=== PATIENT | female | born 1955 | race Caucasian/White ===

== ENCOUNTER 2022-12-06 19:23 | Emergency (ER) | payer MEDICARE, OTHER, SELFPAY ==
[2022-12-06 19:29] VITALS: BP 152/99; PULSE 89; RESP 16; TEMP 36.7; O2SAT 96; BMI 25.7
--- NOTE | 2022-12-06 20:17 | ED.HEATRA1 ---
HPI - Head Injury General Chief complaint: Head Injury Stated complaint: FALL HEAD INJURY Time Seen by Provider: 12/06/22 20:17 Source: patient Mode of arrival: walk-in History of Present Illness HPI Narrative: Patient presents to emergency department complaining of a head injury. Patient states she tripped on cement and fell onto her bilateral knees and hit the frontal area of her head with a lot of epistaxis. She did not have loss of consciousness. She is here complaining Headache, no sprain, and bilateral knee pain. She was able to ambulate. Her immunizations are up-to-date. She denies any visual disturbance, speech. She denies any paresthesias, or weakness. Denies any nausea, vomiting, diarrhea, constipation, or abdominal pain. She denies any pain to her upper extremities. She denies any chest pain, shortness of breath. Related Data Home Medications Medication Instructions Recorded Confirmed anastrozole 1 mg tablet 1 mg PO DAILY 12/06/22 12/06/22 cyclosporine 0.05 % eye drops in a 1 drp ophthalmic (eye) Q12H 12/06/22 12/06/22 dropperette (Restasis) fish, borage, flaxseed oils-omega cap PO DAILY 12/06/22 3,6,9 comb no.1 1,200 mg capsule (Ettrick 3-6-9) levothyroxine 100 mcg tablet 100 mcg PO DAILY 12/06/22 12/06/22 (Euthyrox) multivitamin 1 tab PO DAILY 12/06/22 12/06/22 venlafaxine 37.5 mg 37.5 mg PO DAILY 12/06/22 12/06/22 capsule,extended release 24 hr Allergies Allergy/AdvReac Type Severity Reaction Status Date / Time acetaminophen [From [place]] Allergy Severe Verified 12/06/22 19:35 bupropion Allergy Severe Verified 12/06/22 19:35 hydrocodone [From [place]] Allergy Severe Verified 12/06/22 19:35 latex Allergy Severe Verified 12/06/22 19:35 propoxyphene Allergy Severe Verified 12/06/22 19:35 [From Darvocet-N 100] IV contrast Allergy Severe Uncoded 12/06/22 19:35 Review of Systems ROS Status of ROS 10 or more systems reviewed and unremarkable except as noted in history and below [facility] Medical History (Updated 12/06/22 @ 23:22 by Nancie Mccann MD) Exam Narrative Exam Narrative: Nurses notes and vital signs reviewed and patient is not hypoxic. General: Nontoxic,Well-appearing, and in no apparent distress. Skin: Warm, dry, no pallor noted. No Rash Head: Normocephalic, Ecchymosis and abrasion to the mid frontal region, nasal bridge, there is ecchymosis with mild periorbital ecchymosis. Extraocular muscles are intact. There is no tenderness or step-offs noted to the periorbital region. No septal hematoma. Neck: Supple, non-tender. Eye: Pupils are equal, round and EOMI. No scleral icterus. Ears, Nose, Mouth, and Throat: TM clear,No hemotympanum, no posterior oropharynx erythema or nasal mucosal hypertrophy, uvula is mid-line Oral mucosa is moist Cardiovascular: Regular Rate and Rhythm without murmur, gallop or rub. Respiratory: No accessory muscle use or respiratory distress. Lungs are clear to auscultation, no wheezing, rales or rhonchi Chest Wall: no tenderness Back: No midline thoracic or lumbar vertebral tenderness. No CVA tenderness Musculoskeletal: bilateral anterior knee abrasions, no ecchymosis noted. Range of motion limited by pain. DP +2, tp +2, cap refill brsik. normal ROM, no calf or popliteal tenderness, no lower extremity edema/swelling GI: Abdomen is soft, non-distended. Normal bowel sounds. No masses appreciated. No tenderness to palpation. No rebound, guarding, or rigidity noted. Neurological: A&O x4. No cranial nerve dysfunction observed. No truncal ataxia. Moves all extremities. Sensation intact. Psychiatric: Cooperative and interactive. Normal mood and affect. Constitutional Vital Signs, click to edit/add: Last Vital Signs Temp 98 F 12/06/22 23:21 Pulse 76 12/06/22 23:21 Resp 16 12/06/22 23:21 BP 131/84 H 12/06/22 23:21 Pulse Ox 96 12/06/22 23:21 O2 Del Method Room Air 12/06/22 23:21 Course Vital Signs Vital signs: Vital Signs Temperature 98.0 F 12/06/22 19:29 Pulse Rate 89 12/06/22 19:29 Respiratory Rate 16 12/06/22 19:29 Blood Pressure 152/99 H 12/06/22 19:29 Pulse Oximetry 96 12/06/22 19:29 Oxygen Delivery Method Room Air 12/06/22 19:29 Temperature 98 F 12/06/22 23:21 Pulse Rate 76 12/06/22 23:21 Respiratory Rate 16 12/06/22 23:21 Blood Pressure 131/84 H 12/06/22 23:21 Pulse Oximetry 96 12/06/22 23:21 Oxygen Delivery Method Room Air 12/06/22 23:21 MDM - Head Injury MDM Narrative Medical decision making narrative: CT scan of the brain knees are unremarkable. CT of the facial bones and cervical spine were not resulted. [facility] PAC system was down and alleges had to be resent when they came up. Patient and spouse did not want to wait for the results. He stated we could just: The results in the morning. Patient understands that she could suffer permanent disability, and . She will follow up with her ENT and OMF physician. Patient states she had previous orbital surgery.The patient will sign out against medical advice. We will provide the patient with a disc with her imaging. At this time the patient is without objective evidence of an acute process requiring hospitalization or inpatient management. The patient has remained hemodynamically stable. No additional indication for emergent studies at this time. I answered all questions. Discussed discharge instructions including standard anticipatory guidance and what should prompt a return to the emergency department, including if they get worse are not getting better or develops any new or concerning symptoms. I've given them specific time frame in which to follow-up, and who to follow-up with. The patient demonstrates understanding. Patient is nontoxic and stable for discharge with outpatient follow-up. This note was created with the assistance of a speech recognition program. Although the intention is to generate documents that actually reflects the content of the visit, no guarantees can be provided that every mistake has been identified and corrected by editing. Differential Diagnosis Differential diagnosis: Likely epidural hematoma, closed head injury and subdural hematoma Discharge Plan Discharge Chief Complaint: Head Injury Clinical Impression: Facial bone fracture, Closed head injury, Abrasion of knee, bilateral Patient Disposition: Left Against Medical Advice Time of Disposition Decision: 23:21 Condition: Good Mode of Transportation: Private Vehicle Prescriptions / Home Meds: No Action anastrozole 1 mg tablet 1 mg PO DAILY levothyroxine [Euthyrox] 100 mcg tablet 100 mcg PO DAILY multivitamin Tablet 1 tab PO DAILY Ettrick 3-6-9 1,200 mg capsule PO DAILY venlafaxine 37.5 mg capsule,extended release 24hr 37.5 mg PO DAILY cyclosporine [Restasis] 0.05 % dropperette 1 drp OPHTHALMIC (EYE) Q12H Instructions: Facial Fracture (ED), Head Injury (ED), Abrasion (ED) Stand Alone Forms: Portal Instructions Referrals: Physician,Non-Staff, MD [Primary Care Provider] - 1 week Discharge Date/Time: 12/06/22 23:25
--- NOTE | 2022-12-06 20:24 | CT_ITS ---
The [address] [address] Patient Name: EVENS GARCIA MRN: [id number] date: 1955 Sex: F Assigned Patient Location: ER Current Patient Location: Accession/Order Number: [id number] Exam Date: 12/06/2022 20:50 Report Date: 12/06/2022 22:26 At the request of: KIM GARCIA Procedure: CT head/brain wo con EXAMINATION: CT head/brain wo con CLINICAL HISTORY: pain, fall TECHNIQUE: Serial axial unenhanced images were obtained from the vertex to the foramen magnum. Spiral, high resolution axial unenhanced images were obtained from the skull base to the cervicothoracic junction with sagittal and coronal planar reconstructions. Spiral high resolution axial unenhanced images were also obtained through the facial bones with sagittal and coronal planar reconstructions. All CT scans at this facility use dose modulation, iterative reconstruction, and/or weight based dosing when appropriate to reduce radiation dose to as low as reasonably achievable. COMPARISON: None. RESULT: BRAIN: Acute change: No evidence of an acute contusion or other acute parenchymal process. Hemorrhage: No evidence of acute intracranial hemorrhage. Mass lesion / Mass effect: There is no evidence of an intracranial mass or extraaxial fluid collection. No significant mass effect. Chronic change: None apparent. Parenchyma: There is no significant volume loss. The brain parenchyma is otherwise within normal limits for age. Ventricles: The ventricles are within normal limits of size and configuration for age. Soft Tissues: Mild frontal scalp soft tissue swelling. Facial bones: No evidence of an acute fracture in the visualized facial bones. Orbits: No evidence of an acute fracture. The globes are intact. The soft tissue planes of the orbits are maintained. Paranasal Sinuses: The paranasal sinuses are clear. Mastoid air cells: Clear. Foreign Bodies: No evidence of radio-opaque foreign bodies. Other: No evidence of a remote fracture. No lytic or blastic process in the facial bones. CT/CT head/brain wo con IMPRESSION: No evidence of acute intracranial process. Mild frontal scalp soft tissue swelling. Electronically authenticated by: RU KAUFFMAN Date: 12/06/2022 22:26
--- NOTE | 2022-12-06 20:24 | XR_ITS ---
The [address] [address] Patient Name: EVENS GARCIA MRN: [id number] date: 1955 Sex: F Assigned Patient Location: ER Current Patient Location: ER Accession/Order Number: [id number] Exam Date: 12/06/2022 21:15 Report Date: 12/06/2022 22:26 At the request of: KIM GARCIA Procedure: XR knee ALAN 3V EXAM: XR knee ALAN 3V HISTORY: pain, fall COMPARISON: None. TECHNIQUE: 3 views each name FINDINGS: Right: Overall bony architecture is normal. There is mild medial joint space narrowing with early medial osteophytosis. The patellofemoral joint space is mildly narrowed, with early dorsal osteophytosis. Soft tissues are normal, without evidence of a significant joint effusion. Left: Overall bony architecture is normal. There is mild medial joint space narrowing with early medial osteophytosis. The patellofemoral joint space is mildly narrowed. Soft tissues are normal, without evidence of a significant joint effusion. XR/XR knee ALAN 3V IMPRESSION: Early degenerative arthritis bilaterally. No evidence for acute fracture or dislocation. Electronically authenticated by: Laurie TERRELL Date: 12/06/2022 22:26
--- NOTE | 2022-12-06 22:01 | PC.NURSE ---
Swelling and ecchymosis to bridge of nose. Ice pack provided.
[2022-12-06 23:21] VITALS: BP 131/84; PULSE 76; RESP 16; TEMP 36.6; O2SAT 96
--- NOTE | 2022-12-07 01:31 | CT_ITS ---
The [address] [address] Patient Name: EVENS GARCIA MRN: [id number] date: 1955 Sex: F Assigned Patient Location: ER Current Patient Location: ER Accession/Order Number: [id number] Exam Date: 12/07/2022 01:31 Report Date: 12/07/2022 02:05 At the request of: KIM GARCIA Procedure: CT cervical spine wo con CT facial bones wo con, CT cervical spine wo con INDICATION: 67 years old; Female . Symptom/Location/Duration: pain, fall TECHNIQUE: CT of the facial bones was performed. IV contrast: None. Axial, coronal, sagittal reformats were created and reviewed. Dose reduction techniques were achieved by using automated exposure control and/or adjustment of mA and/or kV according to patient size and/or use of iterative reconstruction technique. COMPARISON: None. FINDINGS: FRONTAL BONES: SUPRAORBITAL SOFT TISSUES: Supraorbital soft tissue swelling present centrally projecting to the right. No subjacent bony abnormality is seen. No displaced fracture is noted. ORBITS: Globes: Normal without proptosis or evidence of disruption or intraocular foreign body. Retrobulbar fat: normal without mass or hematoma. Extraocular Muscles: There is thickening of the medial rectus muscles bilaterally associated with dehiscence of the medial avila of both orbits. Optic Nerves: Normal without mass-effect or evidence of disruption. Preseptal Soft Tissues: Mild preseptal/periorbital soft tissue swelling. Avila: There is dehiscence of the medial avila of both orbits. This is worse on the left than the right. No adjacent fluid levels or opacification is seen in the ethmoid sinuses. There is herniation of extraconal fat into the defect on the left. No muscle entrapment is noted although the left medial rectus muscle projects into the smoothly marginated defect. There is bony dehiscence involving the floors of both orbits. This also appears smoothly marginated. No entrapment of the inferior rectus muscles is seen. There is chronic mucoperiosteal thickening in the right maxillary sinus. No fluid levels are seen in either maxillary sinus. These fractures all appear indeterminate in age. The appearance of be consistent with indeterminate age medial wall fractures. MAXILLA AND MANDIBLE: Maxillary and buccal soft tissues: Normal without swelling, laceration or foreign body. Maxillary bones: The patient is edentulous in the maxilla. Bony demineralization is seen. No fracture is appreciated. Mandible: Multiple missing teeth. Bony demineralization is seen. No fracture or bone displacement is seen. Degenerative changes in the TMJ, worse on the left than the right. Nasal bones and septum: There is soft tissue swelling overlying the nasal bones. Bilateral nasal fracture is appreciated. These are sharply marginated and have an acute appearance. There is mild medial displacement on the left. The nasal processes the maxilla are intact bilaterally. Nasal septal deviation to the left with spur formation. There is soft tissue swelling of the anterior nasal septum. There is additional perforation of the septum. This would be consistent with intranasal medication or drug use, prior surgery, or granulomatous disease. PARANASAL SINUSES: Frontal: Clear. Ethmoid: Deformity associated with medial wall dehiscence. No fluid levels are seen. Maxillary: Maxillary thickening with secretions are present on the right. This has a chronic appearance. The left maxillary sinus demonstrates minimal thickening. No fluid level. Sphenoid: Clear. Zygomatic arch: Intact bilaterally. Pterygoid plates: Intact bilaterally. TECHNIQUE: CT imaging of the cervical spine was performed. IV contrast: None. Dose reduction techniques were achieved by using automated exposure control and/or adjustment of mA and/or kV according to patient size and/or use of iterative reconstruction technique. COMPARISON: None available. FINDINGS: POSTOPERATIVE CHANGES: None. ALIGNMENT: Normal cervical curve. No bony displacement. COMPRESSION FRACTURES: No fracture or vertebral body collapse is seen. No asymmetric widening of the facets. PREVERTEBRAL SOFT TISSUES: Normal. CRANIOCERVICAL JUNCTION: There is a normal relationship of the occipital condyles, lateral masses of C1, and articular surfaces of C2. The base of the dens and body of C2 are intact. There is narrowing of the predental space with spurring arising from the anterior arch of C1 and the dens. POSTERIOR FOSSA: The cerebellar tonsils are above the foramen magnum. Disc levels: C2-C3: No disc herniation. No spinal canal or foraminal narrowing. C3-C4: Shallow central protrusion type disc herniation. Central canal patent. Neural foramina patent. C4-C5: No disc herniation. No spinal canal or foraminal narrowing. C5-C6: No disc herniation. No spinal canal or foraminal narrowing. C6-C7: Disc bulging and endplate osteophyte formation. Central canal and neural foramina patent. C7-T1: No disc herniation. No spinal canal or foraminal narrowing. UPPER THORACIC SPINE: Not included in this examination. OTHER: There is asymmetry in the appearance of the vallecula which is narrowed on the right. Recommend direct visualization. CT/CT cervical spine wo con IMPRESSION: 1. Soft tissue swelling with fractures associated nasal bones bilaterally with slight depression on the left. The fractures are sharply marginated and have an acute appearance. Soft tissue swelling is also noted. 2. Anterior nasal septal perforation which is nonspecific. 3. There is smoothly marginated dehiscence of the medial avila of both orbits, worse on the left than the right and the orbital floors bilaterally. There is no adjacent fluid levels in the ethmoid or maxillary sinuses. The appearance is consistent with indeterminate age fractures. There is thickening of the medial rectus muscles bilaterally. No entrapment is seen. Correlate with direct examination. 4. Supraorbital soft tissue swelling on the right. No fracture the anterior wall the frontal sinus is appreciated. 5. No cervical fracture is seen. Cervical spondylosis is noted. 6. Asymmetric narrowing of the vallecula on the right. This may be secondary to secretions. Consider direct visualization. Electronically authenticated by: WILIAN MARCUS Date: 12/07/2022 02:05
== END 2022-12-06 23:25 | disposition left against medical advice (07) ==
PROVIDERS: Emergency Provider Emergency Medicine; Family Provider Internal Medicine
DX: S02.2XXA Fracture of nasal bones, initial encounter for closed fracture (principal); W01.0XXA Fall on same level from slipping, tripping and stumbling without subsequent striking against object, initial encounter; S00.83XA Contusion of other part of head, initial encounter; S09.8XXA Other specified injuries of head, initial encounter; S80.212A Abrasion, left knee, initial encounter; S80.211A Abrasion, right knee, initial encounter
CPT/HCPCS: 70450; 70486; 72125; 73562; 99284

== ENCOUNTER 2024-04-02 11:38 | Emergency (ER) | payer MEDICARE, OTHER, SELFPAY ==
[2024-04-02] VITALS (25 sets, daily range): BP systolic 117–161; BP diastolic 71–86; PULSE 79–101; TEMP 36.4; O2SAT 95–100; BMI 24.5
--- NOTE | 2024-04-02 11:58 | XR_ITS ---
The [address] [address] Patient Name: EVENS GARCIA MRN: [id number] date: 1955 Sex: F Assigned Patient Location: ER Current Patient Location: ER Accession/Order Number: [id number] Exam Date: 04/02/2024 12:15 Report Date: 04/02/2024 12:44 At the request of: LAURYN CARPENTER Procedure: XR chest 2V EXAM: XR chest 2V HISTORY: sob COMPARISON: None. TECHNIQUE: Upright PA and lateral chest x-ray FINDINGS: The heart is not enlarged and the vasculature is not distended. No acute infiltrate, effusion or pneumothorax is identified. Scoliosis the spine is noted. XR/XR chest 2V IMPRESSION: No acute infiltrate or evidence of cardiac decompensation. Electronically authenticated by: DEVAN STUBBS Date: 04/02/2024 12:44
--- NOTE | 2024-04-02 12:00 | ED_ITS ---
HPI HPI - General Adult General Chief complaint: Shortness of Breath/Dyspnea Stated complaint: SOB Time Seen by Provider: 04/02/24 11:53 Source: patient Mode of arrival: walk-in Limitations: no limitations History of Present Illness HPI narrative: Presented to the emergency department for evaluation of shortness of breath. Patient states for the last week she has been having cough, nasal congestion, coughing fits that leave her breathless. States it has been going on for the last week. Sputum production of green sputum intermittently. She called her doctor to try make an appointment. She went to urgent care yesterday, they told her she had walking pneumonia but it could be going into regular pneumonia so she needed to get an x-ray. Called her PCP to try and again, they told her to just come to the emergency department. Patient states when she has coughing fits she feels like she cannot catch her breath. Has had no leg pain, calf pain or swelling or tenderness, no recent travel, cancer, surgery, immobility. Has a history of breast cancer in the past, but is fully taken care of and has no active cancer no other complaints at this time Related Data Home Medications ?Medication ?Instructions ?Recorded ?Confirmed anastrozole 1 mg tablet 1 mg PO DAILY 12/06/22 12/06/22 cyclosporine 0.05 % eye drops in a 1 drp ophthalmic (eye) Q12H 12/06/22 12/06/22 dropperette (Restasis) fish, borage, flaxseed oils-omega cap PO DAILY 12/06/22 3,6,9 comb no.1 1,200 mg capsule ([place] 3-6-9) levothyroxine 100 mcg tablet 100 mcg PO DAILY 12/06/22 12/06/22 (Euthyrox) multivitamin 1 tab PO DAILY 12/06/22 12/06/22 venlafaxine 37.5 mg 37.5 mg PO DAILY 12/06/22 12/06/22 capsule,extended release 24 hr Previous Rx's ?Medication ?Instructions ?Recorded albuterol sulfate 2.5 mg/3 mL 2.5 mg (3 mL) inhalation Q4H PRN 04/02/24 (0.083 %) solution for nebulization shortness of breath or wheezing #75 mL Allergies Allergy/AdvReac Type Severity Reaction Status Date / Time acetaminophen (From i-nexus) Allergy Severe Verified 12/06/22 19:35 bupropion Allergy Severe Verified 12/06/22 19:35 hydrocodone (From [place]) Allergy Severe Verified 12/06/22 19:35 latex Allergy Severe Verified 12/06/22 19:35 propoxyphene (From Allergy Severe Verified 12/06/22 19:35 Darvocet-N 100) IV contrast Allergy Severe Uncoded 12/06/22 19:35 Opioid HPI Opioid Management Most Recent Opioid Data: No Data to Display Review of Systems ROS Narrative Negative unless otherwise stated in the HPI PFSH PFS Medical History (Updated 04/02/24 @ 15:40 by Kimani Moya MD) Malignant neoplasm of breast (female) ?C50.919 - Malignant neoplasm of unspecified site of unspecified female breast (ICD-10) Adrenal adenoma ?D35.00 - Benign neoplasm of unspecified adrenal gland (ICD-10) 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 - Thyrotoxicosis, unspecified without thyrotoxic crisis or storm (ICD-10) Graves' eye disease ?E05.00 - Thyrotoxicosis with diffuse goiter without thyrotoxic crisis or storm (ICD-10) Hypothyroidism ?E03.9 - Hypothyroidism, unspecified (ICD-10) Social History Little interest or pleasure in doing things: not at all Feeling down, depressed, or hopeless: not at all Exam Narrative Exam Narrative: General: NAD, AAOx3, no distress HEENT: NCAT, mmm Neck: Supple, no LAD, negative Kernig/Brudzinski, non meningeal, no bruit, no supraclavicular retractions Respiratory: respiratory effort normal, speaks in full sentences, no tripod position, no accessory muscle use. Lungs clear to auscultation without rhonchi, wheezes, rales, no retractions Cardiac: Regular rate and rhythm, no edema, regular s1/s2, no m/g/r Abdomen: Soft, ND/NT. No evidence of fluid wave. No pulsatile masses on exam, rebound tenderness, Perez sign or pain over Mcburney's point. Ext: No calf swelling, no leg pain Constitutional Vital Signs, click to edit/add: Last Vital Signs Temp 97.6 F 04/02/24 11:42 Pulse 87 04/02/24 15:01 Resp 18 04/02/24 14:50 BP 131/82 04/02/24 14:45 Pulse Ox 97 04/02/24 15:01 O2 Del Method Room Air 04/02/24 15:01 Course Vital Signs Vital signs: Vital Signs Temperature 97.6 F 04/02/24 11:42 Pulse Rate 91 H 04/02/24 11:42 Respiratory Rate 22 H 04/02/24 11:42 Blood Pressure 161/84 H 04/02/24 11:42 Pulse Oximetry 98 04/02/24 11:42 Oxygen Delivery Method Room Air 04/02/24 11:42 Temperature 97.6 F 04/02/24 11:42 Pulse Rate 87 04/02/24 15:01 Respiratory Rate 18 04/02/24 14:50 Blood Pressure 131/82 04/02/24 14:45 Pulse Oximetry 97 04/02/24 15:01 Oxygen Delivery Method Room Air 04/02/24 15:01 Medical Decision Making MDM Narrative Medical decision making narrative: MDM Patient with history as above presented with shortness of breath. History obtained from patient. Patient was nontoxic, stable. Ambulatory. Exam as above. EKG reviewed. Labs reviewed. Independently reviewed imaging. Reviewed external records. Differential diagnosis considered. Overall presentation is consistent with bronchospasm 1538 patient was reevaluated, states after she got the breathing treatment, all her symptoms resolved, she feels well states that she is never had a diagnosis of emphysema, COPD. CTA labs and incidental findings were noted and discussed. Patient does have a nebulizer machine, states she quit smoking 14 years ago. Patient may have some component of emphysema/COPD. She is currently on steroids is given yesterday from the urgent care, these, pulmonology referral. States that she is asymptomatic right now. Advanced guidance has been given. Vss, pex is benign at this time. Pt to fu with pcp 1-2 days for reeval, rter should sx worsen, persist or become worrysome in any way. All incidental laboratory studies, EKG, radiologic findings have been noted and discussed with patient. Patient was reevaluated with a benign exam at this time. Pt expressed understanding and agreement with plan of care at this time. Will fu as planned. Pt stable for discharge. Lab Data Labs: Lab Results 04/02/24 04/02/24 Range/Units 11:45 11:55 WBC 12.2 H (4.0-11.0) 10^3/uL RBC 4.94 (4.20-5.40) 10^6/uL Hgb 14.8 (12.0-16.0) g/dL Hct 43.3 (36.0-48.0) % MCV 87.7 (81.0-99.0) fL MCH 30.0 (26.7-34.0) pg MCHC 34.2 (29.9-35.2) g/dL RDW 12.3 (11.0-15.0) % Plt Count 419 (150-450) 10^3/uL MPV 10.2 (9.5-13.5) fL Neut % (Auto) 83.3 H (43.0-75.0) % Lymph % (Auto) 6.6 L (20.5-60.0) % [place] % (Auto) 8.9 (1.7-12.0) % Eos % (Auto) 0.3 L (0.9-7.0) % Baso % (Auto) 0.5 (0.2-2.0) % Neut # (Auto) 10.2 H (1.4-6.5) 10^3/uL Lymph # (Auto) 0.8 L (1.2-3.8) 10^3/uL [place] # (Auto) 1.1 H (0.3-0.8) 10^3/uL Eos # (Auto) 0.0 (0.0-0.7) 10^3/uL Baso # (Auto) 0.1 (0.0-0.1) 10^3/uL Abs Immat Gran (auto) 0.05 H (0.00-0.03) 10^3/uL Imm/Tot Granulo (auto) 0.4 (0.0-0.5) % PT 11.5 (9.0-11.6) sec INR 1.09 APTT 25.1 (22.3-36.2) sec D-Dimer 1.46 H* (<=0.59) mg/L FEU Sodium 143 (136-145) mmol/L Potassium 4.0 (3.5-5.1) mmol/L Chloride 108 H (98-107) mmol/L Carbon Dioxide 18.8 L (21.0-32.0) mmol/L Anion Gap 20.2 BUN 23.0 H (7.0-18.0) mg/dL Creatinine 1.32 H (0.55-1.02) mg/dL Est GFR ( Amer) 48 L (>=60 mL/min/1.73m^2) Est GFR (Non-Af Amer) 40 L (>=60 mL/min/1.73m^2) BUN/Creatinine Ratio 17.4 Glucose 130 H (74-106) mg/dL Calcium 9.9 (8.5-10.1) mg/dL Total Bilirubin 0.7 (0.2-1.0) mg/dL AST 41 H (15-37) U/L ALT 39 (14-59) U/L Alkaline Phosphatase 130 H (46-116) U/L Troponin I High Sens 8.8 (4.0-51.3) pg/mL NT-Pro-B Natriuret Pep 500.0 (<=900.0) pg/mL Total Protein 7.3 (6.4-8.2) g/dL Albumin 3.3 L (3.4-5.0) g/dL Globulin 4.0 g/dL Albumin/Globulin Ratio 0.8 Influenza Type A Ag Negative Influenza Type B Ag Negative SARS-CoV-2 Ag (CV2AG) Negative (NEGATIVE) Discharge Plan Discharge Chief Complaint: Shortness of Breath/Dyspnea Clinical Impression: Shortness of breath Patient Disposition: Home, Self-Care Time of Disposition Decision: 15:40 Prescriptions / Home Meds: New albuterol sulfate 2.5 mg /3 mL (0.083 %) solution for nebulization 2.5 mg inhalation Q4H PRN (Reason: shortness of breath or wheezing) Qty: 75 0RF No Action anastrozole 1 mg tablet 1 mg PO DAILY levothyroxine [Euthyrox] 100 mcg tablet 100 mcg PO DAILY multivitamin Tablet 1 tab PO DAILY [place] 3-6-9 1,200 mg capsule PO DAILY venlafaxine 37.5 mg capsule,extended release 24hr 37.5 mg PO DAILY cyclosporine [Restasis] 0.05 % dropperette 1 drp OPHTHALMIC (EYE) Q12H Print Language: [place] Instructions: Shortness of Breath (ED) Additional Instructions: Follow-up with your PCP in the next 1 to 2 days. Return to the emergency department should symptoms worsen or become worrisome in any way. Referrals: Physician,Non-Staff, MD [Primary Care Provider] - 1 week
[2024-04-02 12:17] LABS: Basophils Absolute Auto 0.1 10^3/uL (0.0-0.1); Basophils Percent Auto 0.5 % (0.2-2.0); Eosinophils Percent Auto 0.3 % (0.9-7.0); Hematocrit 43.3 % (36.0-48.0); Hemoglobin 14.8 g/dL (12.0-16.0); Immature Granulocytes Abs Auto 0.05 10^3/uL (0.00-0.03); Immature Granulocytes Pct Auto 0.4 % (0.0-0.5); Lymphocytes Absolute Auto 0.8 10^3/uL (1.2-3.8); Lymphocytes Percent Auto 6.6 % (20.5-60.0); Mean Corpuscular HGB Conc 34.2 g/dL (29.9-35.2); Mean Corpuscular Volume 87.7 fL (81.0-99.0); Mean Platelet Volume 10.2 fL (9.5-13.5); Monocytes Absolute Auto 1.1 10^3/uL (0.3-0.8); Monocytes Percent Auto 8.9 % (1.7-12.0); Neutrophils Absolute Auto 10.2 10^3/uL (1.4-6.5); Neutrophils Percent Auto 83.3 % (43.0-75.0); Platelet Count 419 10^3/uL (150-450); Red Blood Count 4.94 10^6/uL (4.20-5.40); Red Cell Distribution Width 12.3 % (11.0-15.0); White Blood Count 12.2 10^3/uL (4.0-11.0)
[2024-04-02 12:23] LABS: Influenza Virus A Antigen Negative; Influenza Virus B Antigen Negative; Internal Control Within Normal Limits; SARS-CoV-2 Ag NEGATIVE (NEGATIVE)
[2024-04-02 12:32] LABS: INR 1.09; Partial Thromboplastin Time 25.1 sec (22.3-36.2); Prothrombin Time 11.5 sec (9.0-11.6)
[2024-04-02 12:34] LABS: D Dimer 1.46 mg/L FEU (<=0.59)
--- NOTE | 2024-04-02 12:34 | CT_ITS ---
The [address] [address] Patient Name: EVENS GARCIA MRN: [id number] date: 1955 Sex: F Assigned Patient Location: ER Current Patient Location: Accession/Order Number: [id number] Exam Date: 04/02/2024 13:55 Report Date: 04/02/2024 14:40 At the request of: LAURYN CARPENTER Procedure: CT angio chest CT chest with contrast (CT pulmonary angiography) CLINICAL: sob elevated dimer COMPARISON: None. TECHNIQUE: CT pulmonary angiography of the chest performed following the uneventful administration of intravenous contrast in accordance with a pulmonary embolism protocol. Sagittal and coronal pulmonary angiographic maximum intensity projection images performed. Dose reduction: mA and/or kV are adjusted by automated exposure control software based on patient size. FINDINGS: There is no large, central, lobar, segmental, or subsegmental pulmonary embolism. The right, left, main pulmonary arteries normal caliber. There is mild atherosclerosis of a tortuous thoracic aorta, without aortic aneurysm or dissection. Heart size is normal. There is a tiny pericardial effusion. There is mild dependent bilateral lower lobe atelectasis, with background of mild emphysema. No lobar consolidation, effusion, or pneumothorax. There are tiny calcifications at the right lung apex, and also a small calcified right lower lobe granuloma. There is a small amount of fluid in the superior pericardial recess just below the tj. There is no mediastinal, hilar, or axillary lymphadenopathy. Thyroid gland is either diffusely atrophic or surgically absent. There is a small amount of fluid within the majority of the thoracic esophagus. Limited imaging of upper abdomen demonstrates bilateral adrenal gland nodules with diffuse enlargement of the adrenal glands. Right adrenal gland nodule at 3.0 x 1.1 x 3.2 cm, and left adrenal gland nodule at 2.5 x 2.0 cm, with internal attenuation of 11 Hounsfield units on both sides. Tiny amount of sludge versus noncalcified gallstones the gallbladder fundus. Mild degenerative changes of the spine. Thoracic dextroscoliosis. CT/CT angio chest IMPRESSION: 1. Negative for pulmonary embolism. 2. Mildly atherosclerotic tortuous thoracic aorta without aortic aneurysm or dissection. Heart size normal, with tiny pericardial effusion. 3. Mild emphysema with dependent bilateral lower lobe atelectasis. Lungs are otherwise clear without acute pulmonary process. No discrete or suspicious noncalcified pulmonary nodule. With a background emphysema, recommend annual low-dose chest CT for lung cancer screening in one year. 4. Negative for thoracic lymphadenopathy. 5. Small nodules in the diffusely enlarged collateral adrenal glands. While there are no prior comparison studies, appearance favoring adenomatous hypertrophy with adenomas. 6. Tiny amount of gallbladder sludge versus noncalcified gallstones, also small amount of fluid throughout the thoracic esophagus that may be from gastroesophageal reflux or esophageal motility disorder. Additional incidental findings discussed above. Electronically authenticated by: CELESTE CARBAJAL Date: 04/02/2024 14:40
[2024-04-02 12:39] LABS: Alanine Aminotransferase 39 U/L (14-59); Albumin Globulin Ratio 0.8; Albumin Level 3.3 g/dL (3.4-5.0); Alkaline Phosphatase 130 U/L (46-116); Anion Gap 20.2; Aspartate Amino Transferase 41 U/L (15-37); BUN Creatinine Ratio 17.4; Bilirubin Total 0.7 mg/dL (0.2-1.0); Calcium 9.9 mg/dL (8.5-10.1); Carbon Dioxide 18.8 mmol/L (21.0-32.0); Chloride 108 mmol/L (98-107); Estimated GFR (African America 48 (>=60 mL/min/1.73m^2); Estimated GFR (Non-African Ame 40 (>=60 mL/min/1.73m^2); Glucose 130 mg/dL (74-106); Sodium 143 mmol/L (136-145); Total Protein 7.3 g/dL (6.4-8.2)
[2024-04-02 12:43] LABS: Troponin I High Sensitivity 8.8 pg/mL (4.0-51.3)
[2024-04-02] MEDS: DIPHENHYDRAMINE HCL 50 MG/ML VIAL IV (13:06)
[2024-04-02] MEDS: METHYLPREDNISOLONE SOD SUCC PF 125 MG/2 ML VIAL IVP (13:06)
--- NOTE | 2024-04-02 13:52 | ECG_ITS ---
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
[2024-04-02] MEDS: ALBUTEROL SULFATE 2.5 MG/3 ML VIAL NEB IH (15:00)
== END 2024-04-02 15:49 | disposition home or self-care (01) ==
PROVIDERS: Emergency Provider Emergency Medicine; Family Provider Internal Medicine
DX: R06.02 Shortness of breath (principal); Z85.3 Personal history of malignant neoplasm of breast; Z87.891 Personal history of nicotine dependence
CPT/HCPCS: 36415; 71046; 71275; 80053; 83880; 84484; 85025; 85378; 85610; 85730; 87502; 87804; 87811; 93005; 94640; 96374; 96375; 99285; 99406; J1200; J2919; Q9967